=== PATIENT | female | born 1965 | race Caucasian/White ===

== ENCOUNTER → 2016-11-02 | Day surgery (SDC) | payer OTHER ==
[2016-10-23 10:41] VITALS: Ht 162.6 cm; Wt 63.6 kg
[~2016-11-02] VITALS: Ht 162.6 cm; Wt 63.6 kg
[~2016-11-02] MED LIST: BUTA1CAP17; CIPR-255 PO; LIDOCAINE HCL 2% 2 ML VIAL (20MG/ML) ONE; METH2.5T PO; MIDAZOLAM HCL 1 MG/ML 2ML VIAL ONE; OXYC1TAB3 PO; PRLSR20 PO; PROPOFOL IV EMULSION 10 MG/ML 20 ML VIAL IV ONE; SODIUM CHLORIDE 0.9% 500ML 500 ML IV ONE; SUMA6KIT INJ; VEDO1INJ IV
--- NOTE | 2016-11-02 15:35 | Endo History and Physical ---
History & Physical Date of Service: Nov 02, 2016. Chief Complaint: ulcerative colitis Referring Physician: Dr. Markos Doll History of Present Illness 51 yo CF who presents for colonoscopy secondary to ulcerative colitis. Past Medical History Gastrointestinal Disorder Past Surgical History Hx Cardiac Surgery: No Hx Internal Defibrillator: No Hx Pacemaker: No Hx Abdominal Surgery: Yes (PARTIAL HYSTERECTOMY) Hx Post-Op Nausea and Vomiting: No Hx Cancer Surgery: No Hx Thoracic Surgery: No Hx Orthopedic: No Hx Urinary Tract Surgery: No Family History Colon CA Social History Smoking Status: Never Smoker Hx Substance Use: No Hx Alcohol Use: No Allergies Coded Allergies: Cephalosporins (Verified Allergy, Severe, clarifying uncoded allergies, ) ceftin/cefuroxime Dust (Verified Allergy, Severe, clarifying uncoded allergy, 10/23/16) Molds and Smuts (Verified Allergy, Severe, clarifying uncoded allergy, ) Sulfa Antibiotics (Verified Allergy, Intermediate, HIVES, 10/23/16) Sulfamethoxazole w/Trimethoprim (Verified Allergy, Intermediate, HIVES, ) Fentanyl (Verified Allergy, Unknown, 10/23/16) Current Medications Reported Home Medications Medications Dose Route/Sig Max Daily Dose Days Date Category Dose Instructions Imitrex Statdose (Sumatriptan Succinate) 6 Mg/0.5 Ml Inj PRN 11/23/15 Reported Fioricet (Tzwqwpherb-Qjpcsuncooaom-Mmfpc) 1 Cap Cap PRN 11/23/15 Reported Entyvio (Vedolizumab) 300 Mg Inj 1 Dose IV Q8WKS 11/23/15 Reported Methotrexate (Methotrexate Sodium) 2.5 Mg Tab 2.5 Mg PO WK 08/24/15 Reported take 3 pills once weekly Vital Signs Weight (Kilograms): 63.64 Height (Feet): 5 Height (Inches): 4 Date Time Temp Pulse Resp B/P Pulse Ox O2 Delivery O2 Flow Rate FiO2 11/02/16 15:13 37 103 20 146/66 98 Room Air Physical Exam General Appearance: WD/WN, no apparent distress Respiratory/Chest: Auscultation: breath sounds normal Cardiovascular: Heart Auscultation: RRR Abdomen: Bowel Sounds: normal Inspection & Palpation: soft, non-distended, no tenderness, guarding & rebound Assessment and Plan Assessment: 51 yo CF who presents for colonoscopy secondary to ulcerative colitis. Plan: Proceed with colonoscopy.
--- NOTE | 2016-11-02 15:56 | Discharge Instructions ---
Endoscopy Patient Instructions Date / Procedure(s) Performed Nov 02, 2016. Colonoscopy Allergy Information Coded Allergies: Cephalosporins (Verified Allergy, Severe, clarifying uncoded allergies, ) ceftin/cefuroxime Dust (Verified Allergy, Severe, clarifying uncoded allergy, 10/23/16) Molds and Smuts (Verified Allergy, Severe, clarifying uncoded allergy, ) Sulfa Antibiotics (Verified Allergy, Intermediate, HIVES, 10/23/16) Sulfamethoxazole w/Trimethoprim (Verified Allergy, Intermediate, HIVES, ) Fentanyl (Verified Allergy, Unknown, 10/23/16) Discharge Date / Findings Nov 02, 2016. UIcerative colitis s/p biopsies Anorectal Stricture Medication Instructions OK to resume all medications today as prescribed. Reported Home Medications Medications Dose Route/Sig Max Daily Dose Days Date Category Dose Instructions Imitrex Statdose (Sumatriptan Succinate) 6 Mg/0.5 Ml Inj PRN 11/23/15 Reported Fioricet (Dgysrkknby-Rafvcmliuasjt-Vzjfr) 1 Cap Cap PRN 11/23/15 Reported Entyvio (Vedolizumab) 300 Mg Inj 1 Dose IV Q8WKS 11/23/15 Reported Methotrexate (Methotrexate Sodium) 2.5 Mg Tab 2.5 Mg PO WK 08/24/15 Reported take 3 pills once weekly Provider Instructions Activity Restrictions - No exercising or heavy lifting for 24 hours. - Do not drink alcohol the day of the procedure. - Do not drive a car or operate machinery until the day after the procedure. - Do not make any important decisions or sign important papers in 24 hours after the procedure. Following Day: - Return to full activity which may include returning to work/school. Diet Start your diet with liquids and light foods (jello, soup, juice, toast). Then eat your usual diet if not nauseated. Treatment For Common After Affects For mild abdominal pain, bloating, or excessive gas: - Rest - Eat lightly - Lie on right side Follow-Up Information Follow-up with Dr. Markos Doll as scheduled Anesthesia Information What You Should Know You have had a procedure that required some medicine to reduce anxiety and discomfort. This treatment is called moderate sedation. After receiving the treatment, you may be sleepy, but you will be able to breathe on your own. The effects of the treatment may last for several hours. Follow these instructions along with Activity/Diet recommendations noted above: * Do NOT do anything where dizziness or clumsiness would be dangerous. * Rest quietly at home today, then you can be up and about tomorrow. * Have a responsible person stay with you the rest of today. * You may have had an I.V. today. If so, you may take the dressing off later today. Recommendations Call your doctor if: * Trouble breathing * Continuous vomiting for more than 24 hours * Temperature above 101 degrees * Severe abdominal pain or bloating * Pain not relieved by pain medicine ordered * There is increased drainage or redness from any incision * A large amount of rectal bleeding greater than 2-3 tablespoons. (If you had a polyp/s removed or have hemorrhoids, a small amount of blood - from the rectum is to be expected.) * You have any unanswered questions or concerns. IN THE EVENT OF A SERIOUS EMERGENCY, GO TO THE NEAREST EMERGENCY ROOM Your discharge instructions were prepared by provider Selvin Kam. Patient Instructions Signature Page Leti Stone Patient (or Guardian) Signature/Date: I have read and understand the instructions given to me by my caregivers. Caregiver/RN/Doctor Signature/Date: The above-named patient and/or guardian has received patient instructions on this date. + Original Patient Signature Page (only) stays with chart. Please make copy for patient.
[2016-11-02 16:25] VITALS: BP 108/53; PULSE 89; O2SAT 100
--- NOTE | 2016-11-02 16:41 | GI REPORT ---
Procedure Date: 11/02/2016 3:25 PM Procedure: Colonoscopy Indications: Chronic ulcerative proctosigmoiditis Medicines: Monitored Anesthesia Care Complications: No immediate complications. Estimated Blood Loss: Estimated blood loss: none. Procedure: Pre-Anesthesia Assessment: - Prior to the procedure, a History and Physical was performed, and patient medications and allergies were reviewed. The patient's tolerance of previous anesthesia was also reviewed. The risks and benefits of the procedure and the sedation options and risks were discussed with the patient. All questions were answered, and informed consent was obtained. Prior Anticoagulants: The patient has taken no previous anticoagulant or antiplatelet agents. ASA Grade Assessment: II - A patient with mild systemic disease. After reviewing the risks and benefits, the patient was deemed in satisfactory condition to undergo the procedure. After I obtained informed consent, the scope was passed under direct vision. Throughout the procedure, the patient's blood pressure, pulse, and oxygen saturations were monitored continuously. The scope was introduced through the anus and advanced to the terminal ileum. The colonoscopy was performed without difficulty. The patient tolerated the procedure well. The quality of the bowel preparation was good. The terminal ileum, ileocecal valve, appendiceal orifice, and rectum were photographed. Findings: A benign-appearing, intrinsic moderate stenosis measuring 5 cm (in length) x 1.2 cm (inner diameter) was found at the anus and in the rectum and was traversed. Several random biopsies were obtained with cold forceps for histology in the entire colon. Impression: - Stricture at the anus and in the rectum. - Several random biopsies were obtained in the entire colon. Recommendation: - Resume previous diet. - Continue present medications. - Repeat colonoscopy for surveillance based on pathology results. - Return to GI office as previously scheduled. - Return to primary care physician as previously scheduled. Selvin Kam DO 11/02/2016 4:39:32 PM This report has been signed electronically. Note Initiated On: 11/02/2016 3:25 PM
--- NOTE | 2016-11-02 17:05 | Anesthesiology Progress Note ---
Anesthesia Post Op Note Date & Time Nov 02, 2016 at 17:04 Vital Signs Pain Intensity: 5 Vital Signs Past 12 Hours Date Time Temp Pulse Resp B/P Pulse Ox O2 Delivery O2 Flow Rate FiO2 11/02/16 16:25 89 20 108/53 100 Room Air 11/02/16 16:10 85 20 118/52 100 Room Air 11/02/16 15:55 96 20 110/70 96 Room Air 11/02/16 15:13 37 103 20 146/66 98 Room Air Notes Mental Status: alert / awake / arousable, participated in evaluation Pt Amnestic to Procedure: Yes Nausea / Vomiting: adequately controlled Pain: adequately controlled Airway Patency, RR, SpO2: stable & adequate BP & HR: stable & adequate Hydration State: stable & adequate Anesthetic Complications: no major complications apparent
== END | disposition home or self-care (01) ==
LOC: C.GI 14:14
PROVIDERS: ATTEND Internal Medicine
DX: K51.30 Ulcerative (chronic) rectosigmoiditis without complications (principal); K62.4 Stenosis of anus and rectum; Z80.0 Family history of malignant neoplasm of digestive organs; Z90.710 Acquired absence of both cervix and uterus; Z88.1 Allergy status to other antibiotic agents; Z88.2 Allergy status to sulfonamides

== ENCOUNTER → 2016-11-22 | Outpatient (CLI) | payer OTHER ==
[~2016-11-22] MED LIST changes: -LIDOCAINE HCL 2% 2 ML VIAL (20MG/ML) ONE; -MIDAZOLAM HCL 1 MG/ML 2ML VIAL ONE; -PROPOFOL IV EMULSION 10 MG/ML 20 ML VIAL IV ONE; -SODIUM CHLORIDE 0.9% 500ML 500 ML IV ONE
[2016-11-22 16:21] LABS: BASO % 0.7 %; BASO ABS # 0.05 K/uL (0-0.2); COMPLETE YES; EOS % 2.5 %; HEMATOCRIT 38.8 % (37-47); IG% 0.3 %; LYMPH % 27.1 %; LYMPH ABS # 1.93 K/uL (1.2-3.4); MEAN CELL VOLUME 85.5 fL (80-100); MEAN CORPUSCULAR HEMOGLOBIN 29.7 pg (25-34); MEAN CORPUSCULAR HGB CONC 34.8 g/dl (32-36); MEAN PLATELET VOLUME 9.5 fL (7.4-10.4); MONO % 7.6 %; NEUT % 61.8 %; PLATELET COUNT 332 K/uL (130-400); RED BLOOD COUNT 4.54 M/uL (4.2-5.4); WHITE BLOOD COUNT 7.11 K/uL (4.8-10.8)
[2016-11-22 16:53] LABS: ALT/SGPT 18 U/L (12-78); BLOOD UREA NITROGEN 11 mg/dl (7-18); BUN/CREATININE RATIO 11.8 (10-20); CARBON DIOXIDE 28 mmol/L (21-32); CHLORIDE 104 mmol/L (98-107); CREATININE 0.89 mg/dl (0.60-1.20); GLUCOSE 99 mg/dl (70-99); POTASSIUM 3.6 mmol/L (3.5-5.1); SODIUM 140 mmol/L (136-145)
[2016-11-22 16:53] LABS: ALT/SGPT 20 U/L (12-78); AST/SGOT 13 U/L (15-37); BLOOD UREA NITROGEN 11 mg/dl (7-18); BUN/CREATININE RATIO 12.5 (10-20); CALCIUM 9.2 mg/dl (8.5-10.1); CARBON DIOXIDE 28 mmol/L (21-32); CHLORIDE 103 mmol/L (98-107); CREATININE 0.86 mg/dl (0.60-1.20); GLUCOSE 95 mg/dl (70-99); POTASSIUM 3.6 mmol/L (3.5-5.1); SODIUM 140 mmol/L (136-145)
[2016-11-22 16:56] LABS: ALB/GLOB RATIO 0.7 (0.9-2); ALKALINE PHOSPHATASE 85 U/L (45-117); AST/SGOT 16 U/L (15-37)
[2016-11-22 16:58] LABS: ALB/GLOB RATIO 0.7 (0.9-2); ALKALINE PHOSPHATASE 85 U/L (45-117); FERRITIN 86.4 ng/ml (8.0-388.0); TOTAL IRON BINDING CAPACITY 279 mcg/dl (250-450)
== END | disposition home or self-care (01) ==
LOC: C.LAB 15:38
PROVIDERS: ATTEND Internal Medicine
DX: K51.30 Ulcerative (chronic) rectosigmoiditis without complications (principal)

== ENCOUNTER → 2017-01-11 | Outpatient (CLI) | payer OTHER | END | disposition home or self-care (01) | LOC: C.LABBC 13:23 | PROVIDERS: ATTEND Family Medicine | DX: R53.83 Other fatigue (principal) ==

== ENCOUNTER → 2017-01-15 | Outpatient (CLI) | payer OTHER ==
[2017-01-15 14:32] LABS: BASO % 0.6 %; BASO ABS # 0.05 K/uL (0-0.2); COMPLETE YES; HEMATOCRIT 39.3 % (37-47); IG% 0.1 %; LYMPH % 33.1 %; LYMPH ABS # 2.76 K/uL (1.2-3.4); MEAN CELL VOLUME 85.6 fL (80-100); MEAN CORPUSCULAR HEMOGLOBIN 28.8 pg (25-34); MEAN CORPUSCULAR HGB CONC 33.6 g/dl (32-36); MEAN PLATELET VOLUME 9.4 fL (7.4-10.4); NEUT % 55.2 %; PLATELET COUNT 414 K/uL (130-400); RED BLOOD COUNT 4.59 M/uL (4.2-5.4); WHITE BLOOD COUNT 8.34 K/uL (4.8-10.8)
--- NOTE | 2017-01-15 14:44 | DIAGNOSTIC IMAGING REPORT ---
CT SCAN OF THE CHEST WITHOUT IV CONTRAST CLINICAL HISTORY: Follow-up pulmonary nodules. COMPARISON STUDY: Chest CT dated 11/18/2015. TECHNIQUE: CT scan of the thorax was performed from the thoracic inlet to the upper abdomen. Images are reviewed in the axial, sagittal, and coronal planes. IV contrast was not administered for this examination as per the front clinician. CT DOSE: 206.01 mGycm FINDINGS: Thyroid: Imaged portions of the thyroid gland are normal in size and attenuation. A subcentimeter low-attenuation nodule is present in the posterior right lobe. Thoracic aorta: The thoracic aorta is normal in caliber and demonstrates standard 3-vessel arch anatomy. Heart: The heart is normal in size and without pericardial effusion. The pulmonary trunk is normal in caliber. Lungs and pleural spaces: There is mild emphysema. No airspace consolidation or pleural effusion is identified. There are numerous (greater than 30) small pulmonary nodules scattered throughout both lungs. These have increased in both size and number from 11/18/2015. The largest nodules in the left upper lobe on image #107 and measures up to 6 mm. A 4 mm right apical nodule is seen on image #57. Mediastinum: There is no mediastinal lymphadenopathy. Lidia: Not well assessed without IV contrast. Axillae: There is no axillary lymphadenopathy. Upper abdomen: A subcentimeter hypodensity in the left lobe of the liver is unchanged from previous. This represents a cyst but is too small for definitive characterization. The visualized kidneys demonstrate cortical atrophy. Both kidneys insert a lobular surface contour. A digital diverticulum is partially imaged. Skeletal structures: No lytic or blastic bony lesions are seen. Mild degenerative change and scoliosis is noted in the thoracic spine. A bone island is noted in the right humeral head. IMPRESSION: 1. Mild emphysema. 2. There is no airspace consolidation or pleural effusion. 3. There has been an overall increase in both the size and number of numerous (greater than 30) pulmonary nodules as compared to 11/18/2015. The largest is seen in the left upper lobe and measure 6 mm. These nodules are indeterminant, and although they could be on an infectious/inflammatory basis neoplasm is not excluded. Clinical correlation will be required. At a minimum, short-term CT follow-up (3 months) is recommended. 4. There is no mediastinal lymphadenopathy. 5. Additional findings as above. Electronically signed by: Placido Paulino M.D. 01/15/2017 2:43 PM Dictated Date/Time: 01/15/2017 2:28 PM
[2017-01-15 14:52] LABS: ALT/SGPT 23 U/L (12-78); AST/SGOT 18 U/L (15-37); BLOOD UREA NITROGEN 7 mg/dl (7-18); BUN/CREATININE RATIO 7.6 (10-20); CALCIUM 8.9 mg/dl (8.5-10.1); CARBON DIOXIDE 30 mmol/L (21-32); CHLORIDE 103 mmol/L (98-107); CREATININE 0.94 mg/dl (0.60-1.20); GLUCOSE 98 mg/dl (70-99); POTASSIUM 3.2 mmol/L (3.5-5.1); SODIUM 140 mmol/L (136-145)
[2017-01-15 14:55] LABS: ALB/GLOB RATIO 0.7 (0.9-2); ALKALINE PHOSPHATASE 76 U/L (45-117)
== END | disposition home or self-care (01) ==
LOC: C.CTS 13:24
PROVIDERS: ATTEND Family Medicine
DX: K51.30 Ulcerative (chronic) rectosigmoiditis without complications (principal); R91.1 Solitary pulmonary nodule

== ENCOUNTER → 2017-01-25 | Outpatient (CLI) | payer OTHER ==
--- NOTE | 2017-01-25 09:21 | DIAGNOSTIC IMAGING REPORT ---
Brain MRI WITHOUT CONTRAST HISTORY: Headache R51 Acute intractable [id number] TECHNIQUE: Multiplanar multisequence MRI of the brain was performed without the use of contrast. COMPARISON STUDY: 12/01/2015 FINDINGS: Cerebellar tonsils continue to be very low-lying consistent with a Chiari I malformation. No evidence for hydrocephalus. . Study demonstrates no evidence for an acute ischemic focus. There is a single focus of increased signal within the right external capsule. No additional foci are appreciated. There is small focus of increased signal within the right frontal deep white matter regions is less well-defined as compared to the prior study. A left periventricular focus is less well-defined well. Optic radiations are clear. Ventricular system is midline. IMPRESSION: 1. Unchanging low lying cerebellar tonsils suggestive of a Chiari I malformation. 2. Foci of increased signal within the periventricular deep right matter regions stable to slightly improved compared to the prior study. 3. Is again is most consistent with a patient with a history of chronic headache, and less likely demyelinating disorder. 4. No evidence for an acute ischemic insult. Electronically signed by: Osbaldo Bedoya M.D. 01/25/2017 9:20 AM Dictated Date/Time: 01/25/2017 9:12 AM
== END | disposition home or self-care (01) ==
LOC: C.MRI 08:04
PROVIDERS: ATTEND Psychiatry & Neurology Neurology
DX: R51 Headache (principal); R90.89 Other abnormal findings on diagnostic imaging of central nervous system

== ENCOUNTER → 2017-03-19 | Outpatient (CLI) | payer OTHER ==
[2017-03-19 12:32] LABS: BASO % 0.7 %; BASO ABS # 0.05 K/uL (0-0.2); COMPLETE YES; EOS % 1.7 %; HEMATOCRIT 40.5 % (37-47); IG% 0.1 %; LYMPH ABS # 2.88 K/uL (1.2-3.4); MEAN CELL VOLUME 86.9 fL (80-100); MEAN CORPUSCULAR HEMOGLOBIN 29.2 pg (25-34); MEAN CORPUSCULAR HGB CONC 33.6 g/dl (32-36); MEAN PLATELET VOLUME 9.7 fL (7.4-10.4); MONO % 6.7 %; NEUT % 49.8 %; PLATELET COUNT 303 K/uL (130-400); RED BLOOD COUNT 4.66 M/uL (4.2-5.4); WHITE BLOOD COUNT 7.03 K/uL (4.8-10.8)
[2017-03-19 12:58] LABS: ALT/SGPT 18 U/L (12-78); BLOOD UREA NITROGEN 12 mg/dl (7-18); BUN/CREATININE RATIO 10.9 (10-20); CARBON DIOXIDE 29 mmol/L (21-32); CHLORIDE 105 mmol/L (98-107); GLUCOSE 95 mg/dl (70-99); POTASSIUM 3.9 mmol/L (3.5-5.1); SODIUM 140 mmol/L (136-145)
[2017-03-19 13:03] LABS: CALCIUM 9.9 mg/dl (8.5-10.1)
[2017-03-19 13:05] LABS: ALB/GLOB RATIO 0.7 (0.9-2); ALKALINE PHOSPHATASE 81 U/L (45-117); AST/SGOT 18 U/L (15-37); FERRITIN 53.2 ng/ml (8.0-388.0)
== END | disposition home or self-care (01) ==
LOC: C.LAB 11:01
PROVIDERS: ATTEND Internal Medicine Hematology & Oncology
DX: K51.30 Ulcerative (chronic) rectosigmoiditis without complications (principal)

== ENCOUNTER 2017-05-17 12:24 | Emergency (ER) | payer OTHER ==
[~2017-05-17] VITALS: Ht 162.6 cm; Wt 66.0 kg
[~2017-05-17 12:24] MED LIST changes: -CIPR-255 PO; -OXYC1TAB3 PO; -PRLSR20 PO
[2017-05-17 12:28] VITALS: TEMP 36.4; Ht 162.6 cm; Wt 66.0 kg
[2017-05-17] MEDS ORDERED: PRLSR20 PO (12:42)
[2017-05-17 13:17] LABS: URINE APPEARANCE CLEAR (CLEAR); URINE BILIRUBIN NEG (NEG); URINE COLOR YELLOW; URINE EPITHELIAL CELL AUTO >30 /lpf (0-5); URINE NITRITE NEG (NEG); URINE SPECIFIC GRAVITY 1.014 (1.000-1.030); UROBILINOGEN NEG (NEG); ZZUR CULT IF INDIC CLEAN CATCH NO
[2017-05-17 13:23] LABS: MANUAL MICROSCOPIC REQUIRED? NO; REVIEW REQ? NO
[2017-05-17] MEDS ORDERED: KETOROLAC TROMETHAMINE 30 MG/ML VIAL IV STA (13:46)
[2017-05-17 14:07] LABS: BASO % 0.4 %; BASO ABS # 0.04 K/uL (0-0.2); COMPLETE YES; EOS % 1.8 %; HEMATOCRIT 39.6 % (37-47); IG% 0.3 %; LYMPH % 38.3 %; LYMPH ABS # 3.57 K/uL (1.2-3.4); MEAN CELL VOLUME 84.4 fL (80-100); MEAN CORPUSCULAR HEMOGLOBIN 28.8 pg (25-34); MEAN CORPUSCULAR HGB CONC 34.1 g/dl (32-36); MEAN PLATELET VOLUME 9.4 fL (7.4-10.4); MONO % 5.9 %; NEUT % 53.3 %; PLATELET COUNT 365 K/uL (130-400); RED BLOOD COUNT 4.69 M/uL (4.2-5.4); WHITE BLOOD COUNT 9.31 K/uL (4.8-10.8)
--- NOTE | 2017-05-17 14:22 | EMERGENCY ROOM VISIT NOTE ---
History First contact with patient: 12:58 Chief Complaint: URINARY SYMPTOMS Stated Complaint: FREQUENT URINATION, BACK PAIN History of Present Illness The patient is a 51 year old female who presents to the Emergency Room with complaints of dysuria and frequent urination which began this morning. The patient states she went to work as normal, however while at work, went to the bathroom. She states she urinated as usual, however then did not feel that she completely emptied her bladder. She states she return to her desk, but continued to have a feeling of fullness in her bladder. The patient does report feelings of urinary urgency throughout the morning, and has gotten to the bathroom 4 times. She states she did begin experiencing left-sided back pain this morning as well. The patient denies blood or pus in her urine. She denies history of urinary tract infections. The patient denies fever, chills, nausea, vomiting, diarrhea, constipation, chest pain, dyspnea. The patient does report occasional abdominal pain, however states this seems to be radiating from her left back. She describes the pain as a squeezing sensation, and states at its best it is 5/10, however intermittently it worsens to 8/10. Review of Systems A complete 10 point review of systems was reviewed with the patient with pertinent positives and negatives as per history of present illness. All else were negative. Social History Smoking Status: Never Smoker Smokeless Tobacco Use: No Alcohol Use: none Drug Use: none Marital Status: Housing Status: lives with family Occupation Status: employed Current/Historical Medications Scheduled Ciprofloxacin Hcl (Cipro), 500 MG PO BID Omeprazole (Prilosec), 20 MG PO DAILY Vedolizumab (Entyvio), 1 DOSE IV Q8WKS Scheduled PRN Oxycodone Ir (Roxicodone Ir), 1 TAB PO Q4-6H PRN for Pain Sumatriptan Succinate (Imitrex Statdose), 1 DOSE INJ UD PRN for Migraine Physical Exam Vital Signs Date Time Temp Pulse Resp B/P (MAP) Pulse Ox O2 Delivery O2 Flow Rate FiO2 05/17/17 16:44 63 18 122/70 98 05/17/17 14:19 125/68 05/17/17 12:28 36.4 73 20 146/88 100 Room Air Physical Exam VITAL SIGNS - Vital signs and nursing notes were reviewed. GENERAL -51-year-old female, appearing her stated age who is in no acute distress, however does appear to be in pain. Communicates well with provider and answers questions appropriately. The patient's is at bedside. HEAD - NC/AT. EYES - PERRL with EOMI bilaterally. Sclera anicteric. Palpebral conjunctiva pink and moist with no injection noted. EARS - No deformities of external structures noted on gross examination bilaterally. No pain elicited with palpation of the tragus bilaterally. External auditory canals without discharge or otorrhea. Tympanic membranes pearly mccallum without retraction or bulging. No fluid or purulent material visualized behind the TM. Handle of malleus, umbo, cone of light, pars tensa/ flaccid all easily visualized. NOSE - Midline and without cyanosis. No epistaxis or purulent drainage noted. Septum midline without deviation or septal hematoma noted. MOUTH/OROPHARYNX - Without perioral cyanosis. Buccal mucosa pink and moist and without leukoplakia. Tongue midline with equal elevation of palate bilaterally. No tonsillar hypertrophy, erythema, or exudates noted. Good dentition noted. NECK - Neck with FROM. Supple to palpation. No nuchal rigidity. LUNGS - Chest wall symmetric without accessory muscle use, intercostals retractions, or central cyanosis. Normal vesicular breath sounds CTA B/L. No wheezes, rales, or rhonchi appreciated. CARDIAC - RRR with S1/S2. No murmur, rubs, or gallops appreciated. ABDOMEN - Abdominal contour normal, not obese, without pulsations or visible masses. Negative Nathaniel's or Russell Cantrell's Signs. BS normoactive all four quadrants. Tenderness to palpation appreciated RUQ. mild guarding on palpation of RUQ. Negative Rebound Tenderness. Negative Rovsing's. Positive Maxwell's. No palpable masses, hepatosplenomegaly, or ascites noted. EXTREMITIES - No clubbing or peripheral cyanosis. No pretibial edema present. +3/5 radial and dorsalis pedis pulses palpated throughout. +5/5 strength noted in UE/LE bilaterally. NEUROLOGIC - Cranial nerves II through XII grossly intact. Sensory intact to light touch throughout. PSYCH - A&Ox3 and cooperates fully with examiner. Pt is very pleasant and interacts well with examiner. Medical Decision & Procedures ER Provider Diagnostic Interpretation: U/S Gallbladder: FINDINGS: Normal gallbladder. Common bile duct 5 mm. Liver is uniform throughout. Small left hepatic lobe cyst measuring 6 mm. Pancreas is uniform. Right kidney is negative for hydronephrosis. IMPRESSION: Negative study U/S Retroperitoneal complete: FINDINGS: Right kidney: Maximum dimension 10.2 cm. No evidence for hydronephrosis. Normal corticomedullary differentiation and cortical thickness. Left kidney: No evidence for hydronephrosis. Several left renal nonobstructing calcifications measuring up to 3 mm. Normal corticomedullary differentiation and cortical thickness. Bladder: No bladder wall thickening. The bilateral ureteral jets were identified. IMPRESSION: Several nonobstructing left renal calcifications. No evidence for hydronephrosis. LABS: Urinalysis positive for blood and epithelial cells. Negative nitrites, leukocytes, or other abnormalities. CBC without leukocytosis, or concerning anemia. CMP without significant abnormalities. Renal and liver function normal. Lipase negative at 217. Laboratory Results 05/17/17 13:50 Red Blood Count 4.69, Mean Corpuscular Volume 84.4, Mean Corpuscular Hemoglobin 28.8, Mean Corpuscular Hemoglobin Concent 34.1, Mean Platelet Volume 9.4, Neutrophils (%) (Auto) 53.3, Lymphocytes (%) (Auto) 38.3, Monocytes (%) (Auto) 5.9, Eosinophils (%) (Auto) 1.8, Basophils (%) (Auto) 0.4, Neutrophils # (Auto) 4.95, Lymphocytes # (Auto) 3.57, Monocytes # (Auto) 0.55, Eosinophils # (Auto) 0.17, Basophils # (Auto) 0.04 05/17/17 13:50 Test 05/17/17 12:35 05/17/17 13:50 Urine Color YELLOW Urine Appearance CLEAR (CLEAR) Urine pH 5.0 (4.5-7.5) Urine Specific [place] 1.014 (1.000-1.030) Urine Protein NEG (NEG) Urine Glucose (UA) NEG (NEG) Urine Ketones NEG (NEG) Urine Occult Blood 1+ (NEG) Urine Nitrite NEG (NEG) Urine Bilirubin NEG (NEG) Urine Urobilinogen NEG (NEG) Urine Leukocyte Esterase NEG (NEG) Urine WBC (Auto) 1-5 /hpf (0-5) Urine RBC (Auto) 0-4 /hpf (0-4) Urine Hyaline Casts (Auto) 0 /lpf (0-5) Urine Epithelial Cells (Auto) >30 /lpf (0-5) Urine Bacteria (Auto) NEG (NEG) White Blood Count 9.31 K/uL (4.8-10.8) Red Blood Count 4.69 M/uL (4.2-5.4) Hemoglobin 13.5 g/dL (12.0-16.0) Hematocrit 39.6 % (37-47) Mean Corpuscular Volume 84.4 fL (80-100) Mean Corpuscular Hemoglobin 28.8 pg (25-34) Mean Corpuscular Hemoglobin Concent 34.1 g/dl (32-36) Platelet Count 365 K/uL (130-400) Mean Platelet Volume 9.4 fL (7.4-10.4) Neutrophils (%) (Auto) 53.3 % Lymphocytes (%) (Auto) 38.3 % Monocytes (%) (Auto) 5.9 % Eosinophils (%) (Auto) 1.8 % Basophils (%) (Auto) 0.4 % Neutrophils # (Auto) 4.95 K/uL (1.4-6.5) Lymphocytes # (Auto) 3.57 K/uL (1.2-3.4) Monocytes # (Auto) 0.55 K/uL (0.11-0.59) Eosinophils # (Auto) 0.17 K/uL (0-0.5) Basophils # (Auto) 0.04 K/uL (0-0.2) RDW Standard Deviation 37.8 fL (36.4-46.3) RDW Coefficient of Variation 12.3 % (11.5-14.5) Immature Granulocyte % (Auto) 0.3 % Immature Granulocyte # (Auto) 0.03 K/uL (0.00-0.02) Anion Gap 7.0 mmol/L (3-11) Est Creatinine Clear Calc Drug Dose 61.5 ml/min Estimated GFR () 75.0 Estimated GFR (Non- 64.7 BUN/Creatinine Ratio 8.8 (10-20) Calcium Level 9.7 mg/dl (8.5-10.1) Total Bilirubin 0.3 mg/dl (0.2-1) Aspartate Amino Transf (AST/SGOT) 20 U/L (15-37) Alanine Aminotransferase (ALT/SGPT) 21 U/L (12-78) Alkaline Phosphatase 74 U/L (45-117) Total Protein 8.2 gm/dl (6.4-8.2) Albumin 3.4 gm/dl (3.4-5.0) Globulin 4.8 gm/dl (2.5-4.0) Albumin/Globulin Ratio 0.7 (0.9-2) Lipase 217 U/L (73-393) Medications Administered Medications (Trade) Dose Ordered Sig/Jcarlos Route Start Time Stop Time Status Last Admin Dose Admin Ketorolac Tromethamine (Toradol Inj) 30 mg NOW STAT IV 05/17/17 13:46 05/17/17 13:47 DC 05/17/17 13:55 30 MG Morphine Sulfate (MoRPHine SULFATE INJ) 4 mg NOW STAT IV 05/17/17 15:37 05/17/17 15:41 DC 05/17/17 16:03 4 MG Ciprofloxacin (Cipro Tab) 500 mg NOW STAT PO 05/17/17 15:37 05/17/17 15:41 DC 05/17/17 16:03 500 MG Ondansetron HCl (Zofran Inj) 4 mg STK-MED ONCE .ROUTE 05/17/17 16:04 05/17/17 16:05 DC 05/17/17 16:09 4 MG ED Course The patient was seen and evaluated as above. Labs, ultrasound ordered due to patient's complaints. The patient did request pain medication, so I did provide her with 30 mg Toradol IV. The patient did report improvement in her symptoms with this medication. I reviewed all findings with the patient. Negative ultrasound and lab work ordered at this time. The patient did request further pain management at this time. I did give her a dose of 4 mg morphine via IV. Because I feel that the patient's pain and symptoms are likely related to a urinary tract infection, I did provide her with a dose of ciprofloxacin 500 mg by mouth. I discussed discharge instructions the patient. Patient's was at bedside. The patient was discharged home in condition. Medical Decision The patient presented with left flank pain, dysuria, and urinary frequency. On examination, however, she did c/o significant RUQ tenderness with positive Maxwell's Sign. Throughout the course of the patient's care, I considered etiologies including: UTI, pyelonephritis, nephrolithiasis, acute cholecystitis, acute diverticulitis , acute pancreatitis, cardiac etiology, and others. Based on the patient's work-up and symptoms, I do feel that her symptoms are related to an early urinary tract infection. I discussed this with the patient , and discussed with her that on occasion, we will note negative urinalysis and lab testing in the early stages of a urinary tract infection. Because her symptoms began this morning, I suspect that this is the case for her. I discussed with the patient antibiotic management for urinary tract infections. Will start her on Ciprofloxacin at this time and have her follow-up closely outpatient with her PCP. [place] Drug Monitoring Program Search Results: patient reviewed within database, no issues identified Medication Reconcilliation Current Medication List: was personally reviewed by me Blood Pressure Screening Patient's blood pressure: Normal blood pressure Impression Primary Impression: Dysuria Additional Impression: Flank pain, acute Departure Information Dispostion Home / Self-Care Condition GOOD Prescriptions Oxycodone Ir (Roxicodone Ir) 5 Mg Tab 1 TAB PO Q4-6H Y for Pain, #15 TAB For Initial Treatment Prov: Maite Love PA-C 05/17/17 Ciprofloxacin Hcl (CIPRO) 500 Mg Tab 500 MG PO BID for 10 Days, #20 TAB Prov: Maite Love PA-C 05/17/17 Referrals No Doctor, Assigned (PCP) Patient Instructions ED Dysuria Uncertain Cause, My [facility] Additional Instructions You have been treated in the Emergency Department for dysuria. Based on your symptoms, however, we will start you on antibiotics for a UTI. You have been prescribed Cipro to be taken twice daily. This is an antibiotic. All antibiotics have the potential to cause diarrhea. Stop this medication and contact a medical provider if you were to develop any significant adverse side effects including: wheezing, shortness of breath, passing out, vomiting, or a diffuse rash. Always take antibiotics as directed and COMPLETE the ENTIRE course regardless of the improvement of your symptoms. You have been prescribed OxyIR to be used for pain control. Take 1 tablets every 4-6 hours as needed for pain. This is a narcotic medication. You cannot drive or consume alcohol while on this medicine. This medicine should only be used for pain that cannot be controlled with [id number] pain medicines. For pain control, you can use the following xadg-rui-fizrccp medicines (if >12 yo): - Regular strength (325mg/tab) Tylenol (acetaminophen) 2 tabs every 4-6 hours as needed. Do not exceed 9 tablets in a 24 hour period. Avoid taking more than 3 grams (3000 mg) of Tylenol per day. This includes any other sources of acetaminophen you may take on a regular basis. - Regular strength (200 mg/tab) Advil (ibuprofen) 2-3 tabs every 4-6 hours as needed. Do not exceed a dose of 3200 mg per day. Drink plenty of water and stay well hydrated. As with any trip to the Emergency Department, you should follow-up with your Primary Care Provider from today's visit. As discussed, we did note a small hepatic cyst which was measured at 6 mm. You should follow-up with your PCP regarding this finding, however I do not feel that it is concerning at this time. Return to the emergency department if your symptoms persist despite treatment plan outlined above or if the following symptoms occur: increased fevers, chills , low back pain, nausea/vomiting, or blood in your urine. Problem Qualifiers
[2017-05-17 14:23] LABS: BUN/CREATININE RATIO 8.8 (10-20); CALCIUM 9.7 mg/dl (8.5-10.1); POTASSIUM 3.7 mmol/L (3.5-5.1)
[2017-05-17 14:26] LABS: ALB/GLOB RATIO 0.7 (0.9-2)
--- NOTE | 2017-05-17 15:12 | DIAGNOSTIC IMAGING REPORT ---
GALLBLADDER-ABD LIMITED CLINICAL HISTORY: RUQ tenderness, positive Maxwell's sign pain. Nausea. TECHNIQUE: Ultrasound COMPARISON STUDY: None FINDINGS: Normal gallbladder. Common bile duct 5 mm. Liver is uniform throughout. Small left hepatic lobe cyst measuring 6 mm. Pancreas is uniform. Right kidney is negative for hydronephrosis. IMPRESSION: Negative study The above report was generated using voice recognition software. It may contain grammatical, syntax or spelling errors. Electronically signed by: Osbaldo Bedoya M.D. 05/17/2017 3:10 PM Dictated Date/Time: 05/17/2017 3:09 PM
--- NOTE | 2017-05-17 15:17 | DIAGNOSTIC IMAGING REPORT ---
(RENAL)RETROPERITONEA COMP HISTORY: Pain Left flank pain, dysuria COMPARISON: None. FINDINGS: Right kidney: Maximum dimension 10.2 cm. No evidence for hydronephrosis. Normal corticomedullary differentiation and cortical thickness. Left kidney: No evidence for hydronephrosis. Several left renal nonobstructing calcifications measuring up to 3 mm. Normal corticomedullary differentiation and cortical thickness. Bladder: No bladder wall thickening. The bilateral ureteral jets were identified. IMPRESSION: Several nonobstructing left renal calcifications. No evidence for hydronephrosis. The above report was generated using voice recognition software. It may contain grammatical, syntax or spelling errors. Electronically signed by: Osbaldo Bedoya M.D. 05/17/2017 3:16 PM Dictated Date/Time: 05/17/2017 3:14 PM
[2017-05-17] MEDS ORDERED: MoRPHine SULFATE 4 MG/ML 1 ML CARP\\VIAL IV STA (15:37)
[2017-05-17] MEDS ORDERED: CIPROFLOXACIN 500 MG TAB PO STA (15:37)
[2017-05-17] MEDS ORDERED: CIPR-255 PO (15:43)
[2017-05-17] MEDS ORDERED: OXYC1TAB3 PO (15:43)
[2017-05-17] MEDS ORDERED: ONDANSETRON INJ 2 MG/ML 2 ML VIAL ONE (16:04)
[2017-05-17 16:44] VITALS: BP 122/70; PULSE 63; O2SAT 98
== END 2017-05-17 16:45 | disposition home or self-care (01) ==
LOC: C.EDB 12:25 → C.EDC 16:45
DX: R30.0 Dysuria (principal); R10.9 Unspecified abdominal pain

== ENCOUNTER → 2017-05-24 | Outpatient (CLI) | payer OTHER ==
[~2017-05-24] MED LIST changes: -BUTA1CAP17; +CIPR-255 PO; -METH2.5T PO; +OXYC1TAB3 PO; +PRLSR20 PO
--- NOTE | 2017-05-24 08:54 | DIAGNOSTIC IMAGING REPORT ---
(CHEST) THORAX WITHOUT CLINICAL HISTORY: 51 years-old Female presenting with PULMONARY NODULES. TECHNIQUE: Multidetector CT imaging of the chest was performed without the use of intravenous contrast. IV contrast: None. A dose lowering technique was used consistent with the principles of ALARA (as low as reasonably achievable). COMPARISON: None. CT DOSE (mGy.cm): The estimated cumulative dose is 198.88 mGy.cm. 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 On soft tissue windows, normal thyroid and thoracic inlet. Few small mediastinal lymph nodes which are subcentimeter in the short axis and nonspecific, possibly reactive and unchanged from prior. Normal aorta. Normal heart size. No pericardial or pleural effusion. Well-defined hypodensity in the left hepatic lobe, nonspecific but possibly hepatic cyst or hamartoma. This is unchanged from prior. On lung windows, scattered punctate nodules in the bilateral lungs predominantly in the upper lobes but affect all 5 lobes. The largest solid nodule on the right measures 3 mm in the right middle lobe (series 4 image 190) and on the left measures 3 mm in the left upper lobe (series 4 image 144). Minimal nodularity also noted along the fissures. Airways patent. On bone windows, normal osseous structures. IMPRESSION: 1. Scattered bilateral punctate pulmonary nodules similar to prior exam. This is nonspecific, however, combined with the presence of subtle nodularity along the fissures, the diagnosis of sarcoidosis is suggested among other etiologies. Subcentimeter mediastinal lymph nodes could also be related and reactive in etiology. Electronically signed by: Doe Nicolas M.D. 05/24/2017 8:53 AM Dictated Date/Time: 05/24/2017 8:45 AM
[2017-05-24 09:48] LABS: BASO % 0.5 %; BASO ABS # 0.03 K/uL (0-0.2); COMPLETE YES; EOS % 1.6 %; HEMATOCRIT 45.9 % (37-47); IG% 0.4 %; LYMPH % 36.2 %; LYMPH ABS # 1.98 K/uL (1.2-3.4); MEAN CELL VOLUME 84.4 fL (80-100); MEAN CORPUSCULAR HEMOGLOBIN 28.1 pg (25-34); MEAN CORPUSCULAR HGB CONC 33.3 g/dl (32-36); MEAN PLATELET VOLUME 9.5 fL (7.4-10.4); MONO % 9.9 %; NEUT % 51.4 %; PLATELET COUNT 363 K/uL (130-400); RED BLOOD COUNT 5.44 M/uL (4.2-5.4); WHITE BLOOD COUNT 5.47 K/uL (4.8-10.8)
[2017-05-24 10:46] LABS: ALT/SGPT 37 U/L (12-78); AST/SGOT 26 U/L (15-37); BLOOD UREA NITROGEN 14 mg/dl (7-18); BUN/CREATININE RATIO 11.4 (10-20); CALCIUM 9.8 mg/dl (8.5-10.1); CARBON DIOXIDE 25 mmol/L (21-32); CHLORIDE 106 mmol/L (98-107); GLUCOSE 102 mg/dl (70-99); POTASSIUM 3.3 mmol/L (3.5-5.1); SODIUM 137 mmol/L (136-145)
[2017-05-24 10:48] LABS: ALB/GLOB RATIO 0.6 (0.9-2); ALKALINE PHOSPHATASE 93 U/L (45-117)
[2017-05-25 12:09] LABS: QUANTIF TB AG-NIL <0.00 IU/ML; QUANTIFERON NIL 0.16 IU/ML
== END | disposition home or self-care (01) ==
LOC: C.CTS 08:14
PROVIDERS: ATTEND Internal Medicine Pulmonary Disease
DX: R91.8 Other nonspecific abnormal finding of lung field (principal); D50.9 Iron deficiency anemia, unspecified

== ENCOUNTER → 2017-06-15 | Outpatient (CLI) | payer OTHER ==
--- NOTE | 2017-06-15 17:29 | DIAGNOSTIC IMAGING REPORT ---
ABDOMEN 2VIEW W/PA CHEST RTN CLINICAL HISTORY: 52 years-old Female presenting with CONSTIPATION. TECHNIQUE: PA view of the chest and supine and upright views of the abdomen were obtained. COMPARISON: 05/05/2016. FINDINGS: Cardiomediastinal silhouette normal. Lungs and pleural spaces clear. Moderate stool burden throughout the colon to the level of the rectum. No evidence of free intraperitoneal gas, pneumatosis, or portal venous gas. Osseous structures normal. IMPRESSION: 1. No acute cardiopulmonary disease. 2. Moderate stool burden could be consistent with constipation. No evidence of bowel obstruction. Electronically signed by: Doe Nicolas M.D. 06/15/2017 5:28 PM Dictated Date/Time: 06/15/2017 5:26 PM
== END | disposition home or self-care (01) ==
LOC: C.RAD 17:00
PROVIDERS: ATTEND Physician Assistant
DX: K59.00 Constipation, unspecified (principal)

== ENCOUNTER → 2017-08-13 | Outpatient (CLI) | payer OTHER ==
[~2017-08-13] MED LIST changes: -CIPR-255 PO; -OXYC1TAB3 PO
--- NOTE | 2017-08-14 07:34 | MAMMOGRAPHY REPORT ---
BILATERAL DIGITAL SCREENING MAMMOGRAM TOMOSYNTHESIS WITH CAD: 08/13/2017 CLINICAL HISTORY: Routine screening. Patient has no complaints. TECHNIQUE: Breast tomosynthesis in addition to standard 2D mammography was performed. Current study was also evaluated with a Computer Aided Detection (CAD) system. COMPARISON: Comparison is made to exams dated: 08/09/2016 mammogram, 08/06/2015 mammogram - [facility], 08/28/2013 mammogram, 08/27/2012 mammogram, 08/25/2011 mammogram, and 06/15/2010 mammogram - [facility] Jagruti Watts. BREAST COMPOSITION: The tissue of both breasts is almost entirely fatty. FINDINGS: No suspicious mass, architectural distortion or cluster of microcalcifications is seen. IMPRESSION: ACR BI-RADS CATEGORY 1: NEGATIVE There is no mammographic evidence of malignancy. A 1 year screening mammogram is recommended. The pa tient will receive written notification of the results. Approximately 10% of breast cancers are not detected with mammography. A negative mammographic report should not delay biopsy if a clinically suggestive mass is present. Deysi turner/jh:08/13/2017 16:56:28 Network Support Analyst: Christine Garnett, [facility] letter sent: Normal 1/2 BI-RADS Code: ACR BI-RADS Category 1: Negative
== END | disposition home or self-care (01) ==
LOC: C.MAMM 08:11
PROVIDERS: ATTEND Internal Medicine
DX: Z12.31 Encounter for screening mammogram for malignant neoplasm of breast (principal)

== ENCOUNTER 2017-12-31 14:06 | Emergency (ER) | payer OTHER ==
[~2017-12-31] VITALS: Ht 162.6 cm; Wt 67.0 kg
[~2017-12-31 14:06] MED LIST changes: -VEDO1INJ IV; +ZINC OXIDE TOP
[2017-12-31] MEDS ORDERED: VEDO1INJ IV (14:08)
[2017-12-31 14:09] VITALS: TEMP 36.9; Ht 162.6 cm; Wt 67.0 kg
[2017-12-31] MEDS ORDERED: PROCHLORPERAZINE 5 MG/ML 2 ML VIAL IV STA (14:37)
[2017-12-31] MEDS ORDERED: KETOROLAC TROMETHAMINE 30 MG/ML VIAL IV STA (14:37)
[2017-12-31] MEDS ORDERED: SODIUM CHLORIDE 0.9% 1000ML 1,000 ML IV STA (14:37)
[2017-12-31] MEDS ORDERED: DiphenhydrAMINE HCL 50 MG/ML VIAL IV STA (14:37)
[2017-12-31 14:39] VITALS: BP 132/73; PULSE 101; O2SAT 96
--- NOTE | 2017-12-31 14:49 | EMERGENCY ROOM VISIT NOTE ---
ED Visit Note First contact with patient: 14:19 CHIEF COMPLAINT: Migraine headache HISTORY OF PRESENT ILLNESS: This 52-year-old female patient presented to the emergency department, ambulatory, with a gradual onset of a severe generalized headache that started 4 days ago. The patient states the migraine is similar to their typical migraines. The patient states she had a rectal scope performed in [place] the day prior to the migraine beginning. She states she was under general anesthesia and intubated for this procedure. She states the day after the procedure, she awoke with the headache. She took Imitrex, and did begin feeling better on this day. She states when she awoke the next day, the headache returned. She took another dose of Imitrex at that time, but did not note improvement in her symptoms. She states since Sunday, the headache has been present. There has been associated photophobia, phonophobia, nausea, but no vomiting. The patient denies fever or chills recently, and there is no weakness or numbness of the extremities. There is no difficulty with speech or vision. No trauma to the head and no neck pain. The pain is severe, constant, and it is slowly increasing in severity. The pain is radiating into the ears and jaws, worse on the right. The patient denies any recent illness or fever. The patient rates the pain as throbbing and 8/10. The patient has taken Imitrex as noted above, no OTC medications. This is not the worst headache of the life and is similar to previous migraines. Previous imaging studies of the brain have been normal. The patient states she has had a decreased appetite, and has not been eating or drinking as normal since the procedure. REVIEW OF SYSTEMS: A 10 system review of systems was performed with positives and pertinent negatives listed in the history of present illness. All other systems were reviewed and are negative. MEDICATIONS: Entyvio, Imitrex, omeprazole PMH: Ulcerative colitis, migraines SOCIAL HISTORY: The patient lives locally with family. She denies drug, alcohol , tobacco use. PHYSICAL EXAM: Vital Signs: Reviewed Nurse's notes, vital signs stable. GENERAL : This is a 52-year-old white female, who appears in pain, but non toxic in appearance and in no acute distress. MENTAL STATUS: Alert, oriented, and coherent. HEENT: Normocephalic. PERRLA. EOMI. Nares patent without nuchal rigidity. Tympanic membranes pearly mccallum without erythema or effusion bilaterally. Mucous membranes moist. NECK: Supple, no nuchal rigidity, nontender, no lymphadenopathy. HEART: Regular rhythm and normal rate without murmurs, ectopy, gallops, or rubs. LUNGS: Clear to auscultation bilaterally without wheezes, rales or rhonchi. No dullness to percussion. No accessory muscle use. No retractions. SKIN: Normal. NEUROLOGICAL: Pupils are round, equal and react to light. The optic fundi are normal and the discs are flat. The patient moves all extremities well and the gait is normal. EMERGENCY DEPARTMENT COURSE: I examined the patient. IV access obtained, labs drawn. Labs do not reveal any significant leukocytosis, anemia, or thrombocytopenia. Of note, the patient's sodium was slightly low at 132, potassium slightly low at 3.4, and magnesium low at 1.7. The patient's urinalysis did show leukocytes and blood, but also had epithelial cells, which I suspect are related to a contaminated specimen. The patient is not experiencing any dysuria, hematuria, or urinary frequency, and would not like to start treatment for possible UTI at this point. I did recommend the patient consider magnesium supplement due to the low magnesium level, as this can trigger and worsen headaches/migraines. The patient will be started on a Medrol Dosepak to help break the migraine at home. She was given discharge instructions, and discharged home in good condition. I attest that I have personally reviewed the patient's current medication list. Patient was found to have normal blood pressure on screening and does not require follow-up. The differential diagnosis includes acute intracranial bleed, meningitis, encephalitis, mass or mass effect, sinusitis, infection, tumor, headache, temporal arteritis and carbon monoxide exposure, and migraine. DIAGNOSIS: Migraine headache Current/Historical Medications Scheduled Methylprednisolone (Medrol Dosepak), 0 PO DAILY Vedolizumab (Entyvio), 1 DOSE IV Q8WKS Scheduled PRN Cyclobenzaprine HCl (Cyclobenzaprine HCl), 5 MG PO BID PRN for Muscle Spasm Omeprazole Magnesium (Prilosec Otc), 20 MG PO DAILY PRN for Acid Reflux Sumatriptan Succinate (Sumatriptan Succinate), 50 MG PO UD PRN for Migraine Allergies Coded Allergies: Cephalosporins (Verified Allergy, Severe, HIVES, 11/06/17) ceftin/cefuroxime Dust (Verified Allergy, Severe, STUFFY NOSE, 11/06/17) Molds and Smuts (Verified Allergy, Severe, STUFFY NOSE, 11/06/17) Sulfa Antibiotics (Verified Allergy, Intermediate, HIVES, 11/06/17) Sulfamethoxazole w/Trimethoprim (Verified Allergy, Intermediate, HIVES, 11/06/17) Fentanyl (Verified Allergy, Unknown, HEADACHE, 11/06/17) Vital Signs Date Time Temp Pulse Resp B/P (MAP) Pulse Ox O2 Delivery O2 Flow Rate FiO2 12/31/17 14:39 101 132/73 96 Room Air 12/31/17 14:09 36.9 121 20 98/71 93 Laboratory Results 12/31/17 14:50 Red Blood Count 4.92, Mean Corpuscular Volume 82.3, Mean Corpuscular Hemoglobin 29.7, Mean Corpuscular Hemoglobin Concent 36.0, Mean Platelet Volume 9.3, Neutrophils (%) (Auto) 76.4, Lymphocytes (%) (Auto) 14.8, Monocytes (%) (Auto) 8.3, Eosinophils (%) (Auto) 0.0, Basophils (%) (Auto) 0.2, Neutrophils # (Auto) 4.70, Lymphocytes # (Auto) 0.91, Monocytes # (Auto) 0.51, Eosinophils # (Auto) 0.00, Basophils # (Auto) 0.01 12/31/17 14:50 Test 12/31/17 14:50 12/31/17 15:00 White Blood Count 6.15 K/uL (4.8-10.8) Red Blood Count 4.92 M/uL (4.2-5.4) Hemoglobin 14.6 g/dL (12.0-16.0) Hematocrit 40.5 % (37-47) Mean Corpuscular Volume 82.3 fL (80-100) Mean Corpuscular Hemoglobin 29.7 pg (25-34) Mean Corpuscular Hemoglobin Concent 36.0 g/dl (32-36) Platelet Count 242 K/uL (130-400) Mean Platelet Volume 9.3 fL (7.4-10.4) Neutrophils (%) (Auto) 76.4 % Lymphocytes (%) (Auto) 14.8 % Monocytes (%) (Auto) 8.3 % Eosinophils (%) (Auto) 0.0 % Basophils (%) (Auto) 0.2 % Neutrophils # (Auto) 4.70 K/uL (1.4-6.5) Lymphocytes # (Auto) 0.91 K/uL (1.2-3.4) Monocytes # (Auto) 0.51 K/uL (0.11-0.59) Eosinophils # (Auto) 0.00 K/uL (0-0.5) Basophils # (Auto) 0.01 K/uL (0-0.2) RDW Standard Deviation 36.1 fL (36.4-46.3) RDW Coefficient of Variation 12.1 % (11.5-14.5) Immature Granulocyte % (Auto) 0.3 % Immature Granulocyte # (Auto) 0.02 K/uL (0.00-0.02) Anion Gap 11.0 mmol/L (3-11) Est Creatinine Clear Calc Drug Dose 56.7 ml/min Estimated GFR () 67.9 Estimated GFR (Non- 58.6 BUN/Creatinine Ratio 11.4 (10-20) Calcium Level 9.1 mg/dl (8.5-10.1) Magnesium Level 1.7 mg/dl (1.8-2.4) Total Bilirubin 0.8 mg/dl (0.2-1) Aspartate Amino Transf (AST/SGOT) 22 U/L (15-37) Alanine Aminotransferase (ALT/SGPT) 28 U/L (12-78) Alkaline Phosphatase 86 U/L (45-117) Total Protein 8.4 gm/dl (6.4-8.2) Albumin 3.4 gm/dl (3.4-5.0) Globulin 5.0 gm/dl (2.5-4.0) Albumin/Globulin Ratio 0.7 (0.9-2) Urine Color YELLOW Urine Appearance CLEAR (CLEAR) Urine pH 8.0 (4.5-7.5) Urine Specific [place] 1.015 (1.000-1.030) Urine Protein NEG (NEG) Urine Glucose (UA) NEG (NEG) Urine Ketones NEG (NEG) Urine Occult Blood TRACE (NEG) Urine Nitrite NEG (NEG) Urine Bilirubin NEG (NEG) Urine Urobilinogen NEG (NEG) Urine Leukocyte Esterase TRACE (NEG) Urine WBC (Auto) 1-5 /hpf (0-5) Urine RBC (Auto) 5-10 /hpf (0-4) Urine Hyaline Casts (Auto) 1-5 /lpf (0-5) Urine Epithelial Cells (Auto) >30 /lpf (0-5) Urine Bacteria (Auto) NEG (NEG) Medications Administered Medications (Trade) Dose Ordered Sig/Jcarlos Route Start Time Stop Time Status Last Admin Dose Admin Sodium Chloride 1,000 ml @ 999 mls/hr Q1H1M STAT IV 12/31/17 14:37 12/31/17 15:37 DC 12/31/17 14:55 999 MLS/HR Ketorolac Tromethamine (Toradol Inj) 30 mg NOW STAT IV 12/31/17 14:37 12/31/17 14:46 DC 12/31/17 15:11 30 MG Diphenhydramine HCl (Benadryl Inj) 25 mg NOW STAT IV 12/31/17 14:37 12/31/17 14:46 DC 12/31/17 15:12 25 MG Prochlorperazine Edisylate (Compazine Inj) 5 mg NOW STAT IV 12/31/17 14:37 12/31/17 14:46 DC 12/31/17 15:11 5 MG Departure Information Impression Primary Impression: Migraine Dispostion Home / Self-Care Condition GOOD Prescriptions Methylprednisolone (MEDROL DOSEPAK) 4 Mg Matteo 0 PO DAILY, #1 PKT Prov: Maite Love PA-C 12/31/17 Referrals Ben Godwin MD (PCP) Patient Instructions ED Headache Migraine, [facility] Additional Instructions DO NOT drive, drink alcohol, operate machinery, or perform dangerous activities today. You were given medications in the ER that can affect your ability to safely function or operate a vehicle. Rest today in a quiet, peaceful, dark environment and get a full 8-10 hrs of sleep tonight. Avoid loud noises, smoke/smoking, alcohol, bright lights, stress, or physical exertion today to minimize the chance the headache may return. Continue current medications as prescribed. You have been prescribed a Medrol Dosepak. This is a steroid which will help decrease your inflammation, redness, and itch. Take the medicine as prescribed. Take the ENTIRE 6 day course of the steroids. Do not take NSAIDs while taking steroids. Ibuprofen(Motrin, Advil) may be used for fever or pain. Use 600mg every six hours as needed. Take with food. Avoid using more than 2400mg in a 24 hour period. Do not use 2400mg per day for more than three consecutive days without physician direction. Prolonged inappropriate use can lead to stomach upset or ulcers. Do not take this medication while taking steroids. (AND/OR) Acetaminophen(Tylenol) may be used for fever or pain. Use 1000mg every six hours as needed. Avoid using more than 3000mg in a 24 hour period. As discussed, there were some leukocytes and blood in your urinalysis. You will receive a phone call if the culture is positive for urinary tract infection within 2-3 days and will be started on antibiotics at that point. Follow-up with her primary care provider if you began experiencing any dysuria, urinary frequency, urinary hesitancy, or blood in your urine. Return to the ER for passing out, worsening headache, vision problems, neck stiffness/pain, fevers, vomiting, worsening of your condition, or as needed. Follow up with your primary physician in 2-3 days for a recheck of your current condition. Problem Qualifiers Primary Impression: Migraine Migraine type: without aura Status migrainosus presence: without status migrainosus Intractability: intractable Qualified Codes: G43.019 - Migraine without aura, intractable, without status migrainosus
[2017-12-31 15:11] LABS: BASO % 0.2 %; BASO ABS # 0.01 K/uL (0-0.2); HEMATOCRIT 40.5 % (37-47); HEMOGLOBIN 14.6 g/dL (12.0-16.0); IG# 0.02 K/uL (0.00-0.02); LYMPH % 14.8 %; LYMPH ABS # 0.91 K/uL (1.2-3.4); MEAN CELL VOLUME 82.3 fL (80-100); MEAN CORPUSCULAR HEMOGLOBIN 29.7 pg (25-34); MEAN PLATELET VOLUME 9.3 fL (7.4-10.4); MONO % 8.3 %; MONO ABS # 0.51 K/uL (0.11-0.59); NEUT % 76.4 %; PLATELET COUNT 242 K/uL (130-400); RED CELL DISTRIBUTION WIDTH CV 12.1 % (11.5-14.5); RED CELL DISTRIBUTION WIDTH SD 36.1 fL (36.4-46.3); WHITE BLOOD COUNT 6.15 K/uL (4.8-10.8)
[2017-12-31 15:29] LABS: ALBUMIN 3.4 gm/dl (3.4-5.0); CALCIUM 9.1 mg/dl (8.5-10.1); CREATININE 1.08 mg/dl (0.60-1.20); POTASSIUM 3.4 mmol/L (3.5-5.1)
[2017-12-31] MEDS ORDERED: OMEP20TA14 PO (15:31)
[2017-12-31] MEDS ORDERED: FLX/5 PO (15:31)
[2017-12-31] MEDS ORDERED: IMT50 PO (15:31)
[2017-12-31 15:37] LABS: TOTAL PROTEIN 8.4 gm/dl (6.4-8.2)
[2017-12-31] MEDS ORDERED: METH4PAK PO (15:44)
== END 2017-12-31 16:20 | disposition home or self-care (01) ==
LOC: C.EDB 14:08 → C.EDA 16:20
DX: G43.909 Migraine, unspecified, not intractable, without status migrainosus (principal); K51.90 Ulcerative colitis, unspecified, without complications; Z79.899 Other long term (current) drug therapy

== ENCOUNTER 2019-11-11 17:26 | Inpatient (IN) ==
[2019-11-11] MEDS ORDERED: ACETAMINOPHEN 325 MG TAB PO PRN (17:31)
[2019-11-11] MEDS ORDERED: ONDANSETRON INJ 2 MG/ML 2 ML VIAL IV PRN (17:31)
--- NOTE | 2019-11-11 17:57 | History & Physical Report ---
Date of Service November 11, 2019 Assessment & Plan (1) IBD (inflammatory bowel disease): (2) Ulcerative colitis: (3) Diarrhea: (4) Abdominal pain: (5) External hemorrhoids: (6) Tachycardia: (7) Hypotension: (8) Anal stricture: - Admit to med surg with tele - Will check cbc and prp now - Pt is tachycardic with HR in 120s and slightly hypotensive with BP of 90/76 - check EKG now, saline jeremy for NSS bolus then followed by continuous fluids as pt is obviously dehydrated with fluid losses and poor oral intake. Monitor closely. - type and screen in case needs for transfusion, pt has never received blood transfusion in the past, obtain blood consent - Recheck UA and follow Cx, last sample appeared contaminated from 11/07 - CT abdomen conducted at that time showed thickening circumferentially involving the entire length of the rectum and sigmoid colon with minimal invovlement of the mid to distal descending colon. The bladder was incompletely evaluated secondary to underdistention.No free fluid or intraperitoneal gas in the peritoneal cavity. - Stool studies obtained on 11/07/18 are negative for infectious etiology including Salmonella, Shigella, Campylobacter, C. diff. - Will start Solu-Medrol 20 mg IV BID - Gastroenterology consulted, Case follows as an outpatient (9) DVT prophylaxis: -Teds, ambulatory CODE STATUS: Full code Disposition: Patient from home likely to remain in the hospital x1 to 2 days History of Present Illness Primary Care Provider: Ben Godwin MD This is a 54 yo F with PMHx of inflammatory bowel disease involving ulcerative colitis, external hemorrhoids, anal stricture. The patient has been taking Entyvio 300 IV Q8wk last taken early August 2019, and most recently tried Uceris 9 mg PO x 8 wk total x 1 on 10/08/10. She reports that her sx have worsened since taking Uceris and feels this is why she isn't doing well. The patient has upwards of 20-30 bowel movements daily with bright red blood. She admits to weakness and having difficulty with ADLs such as walking. She reports " my legs feel like a rubber band" when she attempts to do anything strenuous. Pt denies lightheadedness or dizziness. Her states she appears slightly flushed in her cheeks currently rather than pale. Pt notes she has pressure sensation with urination, and notices that there is a similar consistency to that of her stool, including mucous. She cannot tell if there is blood in the urine. Pt vitals significant for HR of 120 and BP of 90/76 - will transfer to tele Awaiting labs, EKG, and saline jeremy for NSS bolus administration Allergies Allergy/AdvReac Type Severity Reaction Status Date / Time amoxicillin Allergy Intermediate Hives Verified 11/11/19 16:32 Bactrim Allergy Intermediate HIVES Verified 03/05/18 10:55 Cephalosporins Allergy Intermediate HIVES Verified 11/11/19 16:32 fentanyl Allergy Intermediate HEADACHE Verified 11/11/19 16:32 sulfamethoxazole Allergy Intermediate HIVES Verified 11/11/19 16:32 trimethoprim Allergy Intermediate HIVES Verified 11/11/19 16:32 mold Allergy Mild STUFFY NOSE Verified 11/11/19 16:32 Home Medications Home Medications Medication Instructions Recorded Confirmed Type No Known Home Medications 11/07/19 11/07/19 History Past Med/Surg History Social History Preferred Language: Ukrainian Communication Ability: Effective Call Center Coordinator Required: No Beliefs That Will Affect Care: None marital status: Single Current Living Situation: Significant Other Current Living Situation Comment: Lives with boyfriend and son Other Information That Helps Us Care for You: No Feels Safe at Home: Yes Safety Concerns: Feels Safe At This Time Smoking Status: Never smoker Do You Dip or Chew Tobacco: No ; Second Hand Exposure: No ; Hx Alcohol Use: No Hx Substance Use: No Review of Systems Review of Systems: Constitutional: No fever, sweats or chills Eyes: No diplopia, no worsening or blurred vision ENT: normal hearing, no trouble swallowing Respiratory: No cough, sputum, dyspnea at rest or on exertion Cardiovascular: No chest pain, tightness or palpitations Abdomen: As per HPI. + abdominal cramping occasionally, none currently, no nausea, vomiting, or constipation. + BRBPR, + Loose stools Musculoskeletal: No joint pain, calf pain, swelling Neurologic: + generalized weakness, no numbness/tingling, or balance problems Psychiatric: No anxiety or depression Skin: No rash or itch Physical Exam Physical Exam: General: awake, alert, no apparent distress Head: Normocephalic, atraumatic ENT: PERRL, EOMI, no pharyngeal exudate, mucous membranes moist, + flushed cheeks Chest: Clear to auscultation, on room air, no adventitious breath sounds Cardiac: Sinus tachycardia with HR = 120, no murmur, no JVD, normal peripheral pulses, good capillary refill Abdominal: NABS x 4 quadrants, soft, nondistended, nontender to palpation, no rebound, guarding or tenderness Extremities: Normal inspection, no peripheral edema or erythema, calfs nontender to palpation Psych: Discouraged mood and flat affect Neuro: AAO x 3, strength intact bilaterally and related 5/5, no motor deficits, speech is clear, no peripheral sensory deficits Code Status & VTE Plan Code Status FULL CODE - discussed with pt and at bedside. VTE Prophylaxis Plan VTE Prophylaxis will be ordered: Yes Supervising Physician Co-Signing Physician Notes I personally saw and examined the patient. I verified all adhikari points and agree with KATHLEEN Vallejo with the following exceptions and/or additions: Discussed earlier today with Dr Kam. Direct admission due to dehydration with hypotension and tachycardia in setting of inflammatory bowel disease (known UC). Bloody diarrhea since around [place] time. Not getting worse but clearly patient not keeping up with oral intake. Not producing much urine as per patient. O/E Patient comfortable in bed. Tachycardia, regular rhythm, no murmurs. Lungs CTAB. No abdominal pain on exam, BS increased. Dry skin. Moist mucus membranes. Ulcerative colitis flare - Solu-medrol 20mg IV BID as advised by Dr Kam. Will give additional IV LR bolus and change NSS to add KCl in addition. No need to repeat imaging from ER visit on . Agree to transfer to Med/surg with telemetry due to tachycardia. Stool cultures reviewed and negative. PG Care Time/CCT Total # of Minutes Spent Total Time Spent with Patient: Total time spent is greater than 50% in coordination of care (as documented) at patient's floor/unit and/or counseling patient: (1) Diarrhea Diarrhea type: unspecified type Qualified Code(s): R19.7 - Diarrhea, unspecified (2) Abdominal pain Abdominal location: generalized Qualified Code(s): R10.84 - Generalized abdominal pain
[2019-11-11] MEDS ORDERED: SODIUM CHLORIDE 0.9% 1000ML 1,000 ML IV SCH (18:00)
[2019-11-11 18:02] LABS: Basophils # (auto) 0.02 K/uL (0-0.2); Basophils % (auto) 0.2 %; Eosinophils # (auto) 0.07 K/uL (0-0.5); Eosinophils % (auto) 0.6 %; Hemoglobin 13.7 g/dL (12.0-16.0); Immature Granulocytes # (auto) 0.04 K/uL (0.00-0.02); Immature Granulocytes % (auto) 0.4 %; Lymphocytes # (auto) 2.25 K/uL (1.2-3.4); Lymphocytes % (auto) 20.4 %; Mean Corpuscular Hemoglobin 29.7 pg (25-34); Mean Corpuscular Volume 82.3 fL (80-100); Monocytes # (auto) 1.26 K/uL (0.11-0.59); Monocytes % (auto) 11.4 %; Neutrophils # (auto) 7.38 K/uL (1.4-6.5); Platelet Count 482 K/uL (130-400); RDW Coefficient of Variation 12.1 % (11.5-14.5); RDW Standard Deviation 36.3 fL (36.4-46.3); Red Blood Count 4.62 M/uL (4.2-5.4); White Blood Count 11.02 K/uL (4.8-10.8)
[2019-11-11] MEDS ORDERED: SODIUM CHLORIDE 0.9% 1000ML 500 ML IV STA (18:15)
[2019-11-11 18:21] LABS: BUN Creatinine Ratio 13.6 (10-20); Blood Urea Nitrogen 13 mg/dl (7-18); Calcium 9.1 mg/dl (8.5-10.1); Carbon Dioxide 23 mmol/L (21-32); Chloride 98 mmol/L (98-107); Est GFR (African American) 75.3; Est GFR (Non-African American) 64.9; Glucose 99 mg/dl (70-99); Potassium 3.1 mmol/L (3.5-5.1); Sodium 130 mmol/L (136-145)
[2019-11-11 18:26] LABS: Mean Corpuscular Hgb Conc 36.1 g/dL (32-36)
[2019-11-11] MEDS ORDERED: SODIUM CHLORIDE 0.9% 1000ML 1,000 ML IV ONE (18:29)
[2019-11-11 19:02] LABS: INR 1.1 (0.9-1.1); Prothrombin Time 11.2 Seconds (9.0-12.0)
[2019-11-11] MEDS ORDERED: LACTATED RINGER'S 1,000 ML IV ONE (19:45)
[2019-11-11] MEDS: methylPREDNISolone 20 MG in SYRINGE 0 ML IV SCH (20:48)
[2019-11-11] MEDS ORDERED: COUGH DROP (SUGAR FREE) LOZ 24 LOZ/1 BOX BUCCAL PRN (21:46)
[2019-11-11] MEDS: POTASSIUM CHLORIDE 40 MEQ in SODIUM CHLORIDE 0.9% 1000ML 1,000 ML IV SCH (21:58)
[2019-11-11 22:47] LABS: Appearance Urine Clear (Clear); Bacteria Urine Automated Negative (Negative); Bilirubin Urine Negative (Negative); Blood Urine Negative (Negative); Color Urine Yellow; Epithelial Cell Urine Auto >30 /lpf (0-5); Glucose Urine UA Negative (Negative); Ketones Urine 1+ (Negative); Leukocyte Esterase Urine Trace (Negative); Nitrite Urine Negative (Negative); Protein Urine Negative (Negative); RBC Urine Automated 0-4 /hpf (0-4); Urobilinogen Urine Negative (Negative)
[2019-11-12] MEDS: POTASSIUM CHLORIDE 40 MEQ in SODIUM CHLORIDE 0.9% 1000ML 1,000 ML IV SCH (05:20)
[2019-11-12 07:53] LABS: Hemoglobin 10.9 g/dL (12.0-16.0); Mean Corpuscular Hgb Conc 34.1 g/dL (32-36); Mean Corpuscular Volume 85.1 fL (80-100); Platelet Count 325 K/uL (130-400); RDW Coefficient of Variation 12.4 % (11.5-14.5); RDW Standard Deviation 38.5 fL (36.4-46.3); Red Blood Count 3.76 M/uL (4.2-5.4); White Blood Count 6.83 K/uL (4.8-10.8)
[2019-11-12] MEDS: methylPREDNISolone 20 MG in SYRINGE 0 ML IV SCH ×2 (08:25→21:35)
[2019-11-12 08:29] LABS: Albumin Globulin Ratio 0.5 (0.9-2); Albumin Level 1.9 gm/dl (3.4-5.0); BUN Creatinine Ratio 14.4 (10-20); Bilirubin,Total 0.3 mg/dl (0.2-1); Calcium 8.5 mg/dl (8.5-10.1); Creatinine Clr Calc Pharmacy 84.4 ml/min; Est GFR (African American) 115.8; Est GFR (Non-African American) 99.9; Globulin 4.1 gm/dl (2.5-4.0); Magnesium 1.8 mg/dl (1.8-2.4); Potassium 4.5 mmol/L (3.5-5.1)
--- NOTE | 2019-11-12 09:09 | Gastrointestinal Consultation ---
Date of Consultation November 12, 2019 Assessment & Plan (1) IBD (inflammatory bowel disease): Ulcerative Colitis vs Crohn's Colitis. Managed as an outpatient on IV Entyvio q 8 weeks. -Continue IV Solumedrol 20 mg BID. Will plan to transition to po Prednisone taper beginning at 40 mg daily & decreasing by 5 mg weekly over a total of 8 weeks. -Continue IV fluids, electrolyte replacement, & supportive care per primary team -Await fecal calprotectin result (obtained on 11/07) though this will not return for 1-2 weeks. Thank you for allowing us to participate in the care of this patient. If you should have any further questions or concerns, do not hesitate to contact us at [phone] or [phone]. Present on Admission?: Yes Supervising Physician Co-Signing Physician Notes Agree with FABIO Acuna as above Abd: Soft, NT, ND, +BS Continue current therapy Continue supportive care History of Present Illness Reason for Consultation: IBD Attending Physician: Humberto Abraham History of Present Illness Leti Stone is a patient with indeterminate IBD (UC vs Crohn's Colitis) directly admitted to [facility] after a visit in our outpatient clinic with Dr. Kam on 11/11/2018. Patient had been in the ER on 11/07/2018, with complaints of abdominal pain and diarrhea with up to 30 BM's per day. At that time, labs were unremarkable with a hemoglobin of 13.9 and mild hypokalemia, however, her CT scan of the Abdomen and pelvis showed significant inflammation in the rectum and sigmoid colon. She also had a UA with evidence of + leukocyte esterase and 10- 30 WBC's. She was sent home, but has continued to have worsening symptoms. She did contact our office around 4:45 on 11/07/2018 after returning home from her ED trip. She reports a large volume episode of GI bleeding. She was advised to return to the ED. She declined. Yesterday, she reported persistent diarrhea, weakness, abdominal pain in the lower abdomen which she rated as 4/10 in intensity.While eating worsens her symptoms, she denies any palliative factors. She denies any fevers, chills, nausea, or vomiting. She was also noted to be hypotensive in the office. The patient is managed on Entyvio q 8 weeks. Labs upon return to the hospital on 11/11 indicated a hemoglobin of 10.9. K was 3.1 but has been repleted to 4.5. LFTs are OK. At present, she is on IV Solumedrol 20 mg BID. She reports improvement of her symptoms. She reports her bowel frequency has decreased. Allergies Allergy/AdvReac Type Severity Reaction Status Date / Time amoxicillin Allergy Intermediate Hives Verified 11/11/19 16:32 Bactrim Allergy Intermediate HIVES Verified 03/05/18 10:55 Cephalosporins Allergy Intermediate HIVES Verified 11/11/19 16:32 fentanyl Allergy Intermediate HEADACHE Verified 11/11/19 16:32 sulfamethoxazole Allergy Intermediate HIVES Verified 11/11/19 16:32 trimethoprim Allergy Intermediate HIVES Verified 11/11/19 16:32 mold Allergy Mild STUFFY NOSE Verified 11/11/19 16:32 Home Medications Home Medications Medication Instructions Recorded Confirmed Type No Known Home Medications 11/07/19 11/07/19 History Patient History Social History Preferred Language: Cambodian Communication Ability: Effective Flour Blender Helper Required: No Beliefs That Will Affect Care: None marital status: Single Current Living Situation: Significant Other Current Living Situation Comment: Lives with boyfriend and son Other Information That Helps Us Care for You: No Feels Safe at Home: Yes Safety Concerns: Feels Safe At This Time Smoking Status: Never smoker Do You Dip or Chew Tobacco: No ; Second Hand Exposure: No ; Hx Alcohol Use: No Hx Substance Use: No Review of Systems Constitutional: no fever and no chills Eyes: no acute issues Ear, Nose, Mouth, Throat: no acute issues Respiratory: no cough and no dyspnea Cardiovascular: no chest pain Gastrointestinal: + abdominal pain (improving) and + diarrhea/loose stools (improving) Musculoskeletal: no acute complaints Integumentary: no rash Neurologic: no complaints Psychiatric: no acute issues Endocrine: no fatigue Physical Exam Constitutional: WD/WN, vitals as above Eyes: PERRL, conjunctivae normal, anicteric sclerae ENMT: external ear and nose normal, oropharynx normal Neck: normal visual inspection Respiratory: normal respiratory effort, lungs clear to auscultation Cardiovascular: RRR, no murmur, no edema Gastrointestinal (Abdomen): normal bowel sounds, soft, nontender, no hepatosplenomegaly Skin: no rashes, warm and dry Psychiatric: A+Ox3, euthymic affect Results & Data Vital Signs (Past 12 Hours) Vital Signs Temp Pulse Pulse Resp BP BP Pulse Ox 11/12/19 07:22 36.5 C 76 18 90/60 L 90/58 L 97 11/12/19 04:24 36.3 C L 79 20 109/70 99 11/12/19 00:13 90 11/11/19 23:14 36.6 C 89 16 93/59 L 97 11/11/19 21:09 109 H PG Care Time/CCT Total # of Minutes Spent Total Time Spent with Patient: Total time spent is greater than 50% in coordination of care (as documented) at patient's floor/unit and/or counseling patient:
[2019-11-12] MEDS: SODIUM CHLORIDE 0.9% 1000ML 1,000 ML IV SCH (14:02)
--- NOTE | 2019-11-12 20:36 | Hospitalist Progress Note ---
Date of Service November 12, 2019 Assessment & Plan (1) Ulcerative colitis: with flare x 1+ month. appreciate Dr Kam's consult & recommendations. cont IV fluids. cont IV solumedrol. cont other recommendations as per GI. recent infectious w/u - c. diff, stool cx, giardia, etc - all negative. recent colonoscopy report in 09/2019 reviewed. (2) IBD (inflammatory bowel disease): long-standing ulcerative colitis dating back to her 20s. (3) Lower GI bleedinnd to UC flare s/p colonoscopy last month for such improved today (4) Tachycardia: 2nd dehydration - resolved (5) Hypotension: 2nd dehydration - resolved. cut fluid rate to 75cc/hr. change fluids to normal saline. (6) Severe protein-calorie malnutrition: considerable weight loss over last 1-2 months - 2nd to UC flare. would benefit from nutrition consult, boost supplementation, MVI supplementation, etc (7) History of iron deficiency: 2nd UC and bleeding from such. check iron studies AM. if deficient then IV venofer. (8) DVT prophylaxis: ambulation chemical means contraindicated in setting of GI bleeding from UC. updated at bedside Subjective bloody bowel movements have slowed considerably - only 2-3 today thus far. tolerating diet. denies abd pain but does have cramps following a bowel movement. tele - sinus tach now resolved; NSR only. at bedside. Review of Systems Constitutional: no fever and no chills Respiratory: no dyspnea Cardiovascular: no chest pain Physical Exam Constitutional: + thin; no acute distress and no altered mental status ENMT: external ear and nose normal, oropharynx normal Respiratory: normal respiratory effort, lungs clear to auscultation Cardiovascular: Rate/Rhythm: regular rate and regular rhythm Heart Sounds: normal S1 and normal S2; no murmur Vessels: posterior tibial pulses present and dorsalis pedis pulses present; no JVD Extremities: no edema Gastrointestinal (Abdomen): normal bowel sounds, soft, nontender, no hepatosplenomegaly Skin: + pallor Psychiatric: A+Ox3, euthymic affect Results & Data Vital Signs (Past 12 Hours) Vital Signs Temp Pulse Pulse Pulse Resp BP Pulse Ox 11/12/19 19:00 36.5 C 84 18 103/63 98 11/12/19 15:26 80 11/12/19 15:00 36.4 C L 77 18 91/60 L 98 11/12/19 11:19 36.3 C L 99 H 73 18 106/71 99 Laboratory Results Laboratory Results - last 24 hr 11/11/19 11/12/19 11/12/19 21:54 07:19 07:19 WBC 6.83 RBC 3.76 L Hgb 10.9 L Hct 32.0 L MCV 85.1 MCH 29.0 MCHC 34.1 RDW Std Deviation 38.5 RDW Coeff of Jerry 12.4 Plt Count 325 MPV 9.0 Sodium 139 D Potassium 4.5 D Chloride 110 H Carbon Dioxide 22 Anion Gap 7.0 BUN 9 Creatinine 0.65 D Est Cr Clr Drug Dosing 84.4 Est GFR ( Amer) 115.8 Est GFR (Non-Af Amer) 99.9 BUN/Creatinine Ratio 14.4 Glucose 125 H Calcium 8.5 Magnesium 1.8 Total Bilirubin 0.3 AST 16 ALT 10 L Alkaline Phosphatase 53 Total Protein 6.0 L Albumin 1.9 L Globulin 4.1 H Albumin/Globulin Ratio 0.5 L Urine Color Yellow Urine Appearance Clear Urine pH 6.0 Ur Specific [place] 1.010 Urine Protein Negative Urine Glucose (UA) Negative Urine Ketones 1+ H Urine Blood Negative Urine Nitrite Negative Urine Bilirubin Negative Urine Urobilinogen Negative Ur Leukocyte Esterase Trace H Urine WBC (Auto) 1-5 Urine RBC (Auto) 0-4 U Hyaline Cast (Auto) 5-10 H U Epithel Cells (Auto) >30 H Urine Bacteria (Auto) Negative PG Care Time/CCT Total # of Minutes Spent Total Time Spent with Patient: Total time spent is greater than 50% in coordination of care (as documented) at patient's floor/unit and/or counseling patient: (1) Ulcerative colitis Ulcerative colitis location: unspecified ulcerative colitis location Digestive disease complication type: with rectal bleeding Qualified Code(s): K51.911 - Ulcerative colitis, unspecified with rectal bleeding (2) Hypotension Hypotension type: other hypotension type Qualified Code(s): I95.89 - Other hypotension
[2019-11-13] MEDS: SODIUM CHLORIDE 0.9% 1000ML 1,000 ML IV SCH (02:25)
[2019-11-13 07:17] LABS: Hematocrit (blood only) 30.9 % (37-47); Hemoglobin 10.2 g/dL (12.0-16.0); Mean Corpuscular Hemoglobin 28.5 pg (25-34); Mean Corpuscular Volume 86.3 fL (80-100); Mean Platelet Volume 9.1 fL (7.4-10.4); Platelet Count 364 K/uL (130-400); RDW Coefficient of Variation 12.7 % (11.5-14.5); RDW Standard Deviation 40.5 fL (36.4-46.3); Red Blood Count 3.58 M/uL (4.2-5.4); White Blood Count 14.58 K/uL (4.8-10.8)
[2019-11-13 07:46] LABS: BUN Creatinine Ratio 14.1 (10-20); Calcium 8.5 mg/dl (8.5-10.1); Creatinine Clr Calc Pharmacy 81.9 ml/min; Est GFR (African American) 114.7; Potassium 4.1 mmol/L (3.5-5.1)
[2019-11-13 07:50] LABS: Ferritin 207.9 ng/ml (8-388)
[2019-11-13] MEDS: methylPREDNISolone 20 MG in SYRINGE 0 ML IV SCH (08:54)
--- NOTE | 2019-11-13 10:10 | Gastroenterology Progress Note ---
Date of Service November 13, 2019 Assessment & Plan (1) IBD (inflammatory bowel disease): UC vs Crohn's colitis. Improving significantly. K is within normal limits. H/H stable at 10.2/30.9. -Okay for d/c from a GI standpoint. -Would recommend an 8 week Prednisone taper upon d/c (beginning at 40 mg daily x 1 week and decreasing 5 mg weekly). Would recommend using a calcium & vitamin D supplement in conjunction with this to protect bone health. -Resume outpatient care as planned. -Diet as tolerated. Supervising Physician Co-Signing Physician Notes Patient was discharged prior to my evaluation. Thanks. Subjective Patient is a 54 yo female hospitalized for dehydration, diarrhea, & hypotension related to her inflammatory bowel disease. She has been receiving IV Solumedrol 20 mg BID. She reports improvement of her symptoms. She reports 0-6 loose stools without bleeding. She is tolerating po. She is anxious to return to a normal diet. She feels well enough for discharge. Review of Systems Constitutional: no fever and no chills Respiratory: no cough and no dyspnea Cardiovascular: no chest pain Gastrointestinal: no abdominal pain loose stools; frequency improving Physical Exam Constitutional: WD/WN, vitals as above Respiratory: normal respiratory effort, lungs clear to auscultation Cardiovascular: RRR, no murmur, no edema Gastrointestinal (Abdomen): normal bowel sounds, soft, nontender, no hepatosplenomegaly Skin: no rashes, warm and dry Psychiatric: A+Ox3, euthymic affect Results & Data Vital Signs (Past 12 Hours) Vital Signs Temp Pulse Resp BP BP Pulse Ox 11/13/19 07:20 36.3 C L 72 18 96/62 L 98 11/12/19 23:43 36.3 C L 76 18 101/64 98 PG Care Time/CCT Total # of Minutes Spent Total Time Spent with Patient: Total time spent is greater than 50% in coordination of care (as documented) at patient's floor/unit and/or counseling patient:
--- NOTE | 2019-11-13 13:46 | Discharge Summary ---
Date of Service date of admission - November 11, 2019 date of discharge - November 13, 2019 Admission HPI Per Admitting Provider This is a 54 yo F with PMHx of inflammatory bowel disease (ulcerative colitis), external hemorrhoids, and anal stricture. The patient has been taking Entyvio 300 IV Q8wk last taken early August 2019, and most recently tried Uceris 9 mg PO x 8 wk total x 1 on 10/08/10. She reports that her sx have worsened since taking Uceris and feels this is why she isn't doing well. The patient has upwards of 20-30 bowel movements daily with bright red blood. She admits to weakness and having difficulty with ADLs such as walking. She reports " my legs feel like a rubber band" when she attempts to do anything strenuous. Pt denies lightheadedness or dizziness. Her states she appears slightly flushed in her cheeks currently rather than pale. Pt notes she has pressure sensation with urination, and notices that there is a similar consistency to that of her stool, including mucous. She cannot tell if there is blood in the urine. Pt vitals significant for HR of 120 and BP of 90/76 - will transfer to tele Awaiting labs, EKG, and saline jeremy for NSS bolus administration Principal Diagnosis Ulcerative colitis exacerbation Discharge Exam Constitutional + thin; no acute distress and no altered mental status ENMT external ear and nose normal, oropharynx normal Respiratory normal respiratory effort, lungs clear to auscultation Cardiovascular Rate/Rhythm: regular rate and regular rhythm Heart Sounds: normal S1 and normal S2; no murmur Vessels: posterior tibial pulses present and dorsalis pedis pulses present; no JVD Extremities: no edema Gastrointestinal (Abdomen) normal bowel sounds, soft, nontender, no hepatosplenomegaly Skin + pallor Psychiatric A+Ox3, euthymic affect Discharge Data Allergies Allergy/AdvReac Type Severity Reaction Status Date / Time amoxicillin Allergy Intermediate Hives Verified 11/11/19 16:32 Bactrim Allergy Intermediate HIVES Verified 03/05/18 10:55 Cephalosporins Allergy Intermediate HIVES Verified 11/11/19 16:32 fentanyl Allergy Intermediate HEADACHE Verified 11/11/19 16:32 sulfamethoxazole Allergy Intermediate HIVES Verified 11/11/19 16:32 trimethoprim Allergy Intermediate HIVES Verified 11/11/19 16:32 mold Allergy Mild STUFFY NOSE Verified 11/11/19 16:32 Consultations Gastroenterology - Selvin Kam DO Hospital Course (1) Ulcerative colitis: With flare/exacerbation x 1+ month. Seen by Dr Kam's team and IV steroids advised for inpatient treatment. Patient received such with improvement in bloody bowel movements and her GI symptoms overall. Recent infectious w/u - c. diff, stool cx, giardia, etc - all negative. Had recent colonoscopy in 09/[address] Kam showing inflammation of colon; biopsies c/w colitis. At discharge she will take a prolonged steroid taper starting with 40mg daily of prednisone and weaning by 5mg once weekly. Thus, her steroid taper will be 8 weeks in duration. She will f/u with Dr Kam's office within 1-2 weeks of discharge. (2) IBD (inflammatory bowel disease): long-standing ulcerative colitis dating back to her 20s. now with exacerbation/uncontrolled symptoms. (3) Lower GI bleedinnd to UC flare s/p colonoscopy last month for such presenting Hb was 13.7, falling to 10.2 at discharge (4) Tachycardia: 2nd significant dehydration and lower GI bleeding - resolved with IVF. (5) Hypotension: 2nd dehydration and lower GI bleeding - resolved with IVF. (6) Severe protein-calorie malnutrition: considerable weight loss over last 1-2 months - 2nd to UC flare. would benefit from nutrition consult as outpatient, boost supplementation, MVI supplementation, etc (7) History of iron deficiency: 2nd UC and bleeding from such. checked iron studies - transferrin saturation was wnl, and ferritin was robust. IV venofer deferred during this stay. (8) Acute blood loss anemia: 2nd to lower GI bleeding from UC exacerbation/flare. Presenting Hb was 13.7; discharge Hb was 10.2. Lower GI bleeding had stopped by time of discharge. Total Time Total Time Spent Total Time Spent (In Minutes): 25 Total Time Includes: Examination of the Patient, Discharge Planning and Medication Reconciliation Discharge Plan Discharge Items Patient Disposition: Home - Self-Care Reason For Visit: DIARRHEA, ABDOMINAL PAIN Discharge Diagnosis: ulcerative colitis flare - improving with steroids Activity: As commented below Activity Comment: as tolerated Non-emergency contact: Primary Care Provider and Assistant Manager Trainee Call non-emergency contact if: your symptoms worsen and you have a fever Follow-up/Referrals: Selvin Kam DO [Physician] - (see Dr Kam within 1-2 weeks) Ben Godwin MD [Primary Care Provider] - (see Dr Godwin within 1 week if possible) Diet: Low Fiber Addtl Attending Provider Instructions: You were treated for IBD / ulcerative colitis flare. You improved with IV fluids and IV steroids. Dr Kam and his team saw you in consult. They have recommended a slow prednisone taper over 8 weeks. Recommendations: 1. Take prednisone as follows starting 11/14/2019. Take with food. The prednisone tablets are 10mg tablets. * week 1 -- 40mg (4 tabs) once daily for 7 days * week 2 -- 35mg (3.5 tabs) once daily for 7 days * week 3 -- 30mg (3 tabs) once daily for 7 days * week 4 -- 25mg (2.5 tabs) once daily for 7 days * week 5 -- 20mg (2 tabs) once daily for 7 days * week 6 -- 15mg (1.5 tabs) once daily for 7 days * week 7 -- 10mg (1 tab) once daily for 7 days * week 8 -- 5mg (1/2 tab) once daily for 7 days 2. Take pepcid (famotidine) 20mg twice daily to protect your stomach from the effects of prednisone. This is to prevent stomach irritation, ulcers, etc. 3. Take [id number] oscal + D - 1 tablet twice daily for good bone health. Follow-up -- see separate section Return to [facility] if -- * you have fevers over 100.5 degrees * you have worsening diarrhea * you have worsening rectal bleeding * you have abdominal pain * any other concerns Pending Studies at Discharge: No Stand-Alone Forms: My [facility], Work/School Release (Inpt), Smoking Cessation Medications and DC Order Prescriptions: New calcium carbonate-vitamin D3 [Calcium 500 + D] 500 mg(1,250mg) -400 unit tablet 1 tab PO BID Qty: 60 RF: 0 prednisone 10 mg tablet 10 mg PO DIRECTED Qty: 100 RF: 1 famotidine [Pepcid] 20 mg tablet 20 mg PO BID Qty: 60 RF: 2 No Action No Known Home Medications RF: 0 Discharge Orders: Discharge Order (Routine); Ordered 11/13/19 Ordered By: Humberto R Siuta Admission Data Admit Date/Time: 11/11/19 17:31 Attending Provider: Humberto Abraham Admit Provider: Humberto Unger Primary Care Provider: Ben Godwin Other Providers: Selvin Kam Other Interventions: Discharge Summary Assessment (RN) Last Done: 11/13/19 13:05 DC Date/Time DO NOT enter until pt leaves facility: 11/13/19 14:17
== END 2019-11-13 14:17 | disposition home or self-care (01) | DRG 385 ==
LOC: SUATTDRO 17:29 → 4W 17:29 → 2N 19:29